=== PATIENT | male | born 1970 | race Caucasian/White ===

== ENCOUNTER 2017-10-10 08:02 | Emergency (ER) | payer MEDICAID ==
[~2017-10-10] VITALS: Wt 70.8 kg
[2017-10-10] MEDS ORDERED: CEPH-443 PO (08:24)
[2017-10-10] MEDS ORDERED: PRED20TA PO (08:24)
[2017-10-10] MEDS ORDERED: IBUP-1542 PO (08:24)
[2017-10-10] MEDS ORDERED: SULF1TAB31 PO (08:24)
--- NOTE | 2017-10-10 08:28 | ERD ---
ER Documentation Chief Complaint Chief Complaint l. arm bite/redness HPI 47-year-old male presents with a history of an insect bite or sting on the left arm and is now complaining of redness and swelling today. This occurred about 12 hours ago last night, and he states that it caused a little stinging bite sensation on his forearm and then he woke up today with redness, swelling with pain. He is denies trauma. He has not had any drainage. No history of shortness breath, chest pain, rashes. ROS All systems reviewed and are negative except as per history of present illness. Medications Home Meds Active Scripts Ibuprofen* (Motrin*) 600 Mg Tab, 600 MG PO Q6, #30 TAB Prov:JEFFERSON AVILA PA-C 10/10/17 Prednisone* (Prednisone*) 20 Mg Tab, 20 MG PO DAILY for 4 Days, TAB Prov:JEFFERSON AVILA PA-C 10/10/17 Sulfamethoxazole/Trimethoprim* (Bactrim Ds* Tablet) 1 Each Tablet, 1 TAB PO BID , #14 TAB Prov:JEFFERSON AVILA PA-C 10/10/17 Cephalexin* (Keflex*) 500 Mg Capsule, 500 MG PO QID for 7 Days, CAP Prov:JEFFERSON AVILA PA-C 10/10/17 Physical Exam Vitals Vital Signs Date Time Temp Pulse Resp B/P Pulse Ox O2 Delivery O2 Flow Rate FiO2 10/10/17 08:05 98.7 99 20 153/103 98 Physical Exam General: Well-developed, well-nourished. The patient appears in no acute distress. HEENT: Head is normocephalic, atraumatic. No scleral icterus. Neck: Supple. Nontender. Lungs: Clear to auscultation. Normal air movement. Heart: Regular rate and rhythm. S1 and S2 are normal. No murmurs, gallops, or rubs. Abdomen: Soft, nontender, nondistended. Bowel sounds are normoactive. Extremities: No clubbing or cyanosis. Normal pulses. Moving extremities x 4. No weakness. Neurologic: Alert and oriented 3. No focal deficits. Skin: There is an area of the sting bite on the volar aspect of the left forearm. There is swelling, erythema and warmth surrounding the area to the wrist, the patient's skin examination shows induration but no fluctuance. There is no evidence of vesicles. No lymphatic streaking Results 24 hrs Current Medications Medications (Trade) Dose Ordered Sig/Rudolph Route PRN Reason Start Time Stop Time Status Last Admin Dose Admin Cephalexin (Keflex) 500 mg ONCE ONCE PO 10/10/17 08:30 10/10/17 08:31 Trimethoprim/ Sulfamethoxazole (Bactrim (Ds)) 1 tab ONCE ONCE PO 10/10/17 08:30 10/10/17 08:31 Prednisone (Prednisone) 20 mg ONCE ONCE PO 10/10/17 08:30 10/10/17 08:31 Procedures/MDM 47-year-old male presents with a local reaction from insect bite sting, with local cellulitis. There is no abscess, there is no evidence of compartment syndrome, trauma, deep space infection, anaphylaxis. Given the swelling, patient will be placed on a low dose of prednisone, given Keflex and Bactrim as antimicrobial coverage and ibuprofen for pain and swelling. He has been asked to keep the area clean and dry and recheck in 2 days. No lymphatic streaking, the patient's examination shows no signs of a limb threatening process any stable for outpatient management. Departure Diagnosis: Primary Impression: Cellulitis of arm Condition: Good Patient Instructions: Cellulitis, Allergic Reaction, Insect (Local) Additional Instructions: WOUND CHECK:CONSULTE A RUMA MARROQUIN EN 2 garcía para trupti HENDRIX HERIDA. JEFFERSON AVILA PA-C Oct 10, 2017 08:28
[2017-10-10] MEDS ORDERED: TRIMETHOPRIM/SULFAMETHOX (DS) TAB PO ONE (08:30)
[2017-10-10] MEDS ORDERED: BACITRACIN 0.5%/ZINC 28.35 GM OINT TOP ONE (08:30)
[2017-10-10] MEDS ORDERED: predniSONE 20 MG TAB PO ONE (08:30)
[2017-10-10] MEDS ORDERED: CEPHALEXIN 500 MG CAP PO ONE (08:30)
== END 2017-10-10 08:56 | disposition home or self-care (01) ==
LOC: FTE 08:02
DX: L03.114 Cellulitis of left upper limb (principal)
CPT/HCPCS: J7512; Z7502; Z7610; 99284

== ENCOUNTER 2017-10-11 09:09 | Emergency (ER) | payer MEDICAID ==
[~2017-10-11] VITALS: Ht 170.2 cm; Wt 70.7 kg
[~2017-10-11 09:09] MED LIST: CEPH-443 PO; IBUP-1542 PO; PRED20TA PO; SULF1TAB31 PO
[2017-10-11 09:11] VITALS: Ht 170.2 cm; Wt 70.7 kg
--- NOTE | 2017-10-11 09:35 | ERD ---
ER Documentation Chief Complaint Chief Complaint redness/swelling to left arm is getting worse since yesterdays visit HPI 47-year-old male, previously healthy, returns to the emergency department as directed by his provider here in the ER for worsening of erythema , warmth and tenderness of left forearm. The patient started his antibiotics last night including cephalexin and Bactrim but this morning he noticed that the edema, erythema and pain had progressed. Denies fevers, chills, refers full range of motion of all fingers, no numbness or tingling. ROS All systems reviewed and are negative except as per history of present illness. Medications Home Meds Active Scripts Ibuprofen* (Motrin*) 600 Mg Tab, 600 MG PO Q6, #30 TAB Prov:JEFFERSON AVILA PA-C 10/10/17 Prednisone* (Prednisone*) 20 Mg Tab, 20 MG PO DAILY for 4 Days, TAB Prov:JEFFERSON AVILA PA-C 10/10/17 Sulfamethoxazole/Trimethoprim* (Bactrim Ds* Tablet) 1 Each Tablet, 1 TAB PO BID , #14 TAB Prov:JEFFERSON AVILA PA-C 10/10/17 Cephalexin* (Keflex*) 500 Mg Capsule, 500 MG PO QID for 7 Days, CAP Prov:JEFFERSON AVLIA PA-C 10/10/17 Allergies Allergies: Coded Allergies: No Known Allergy (Unverified , 10/11/17) PMhx/Soc Hx Alcohol Use: No Hx Substance Use: No Hx Tobacco Use: No Physical Exam Vitals Vital Signs Date Time Temp Pulse Resp B/P Pulse Ox O2 Delivery O2 Flow Rate FiO2 10/11/17 09:11 99.6 84 18 144/91 98 Physical Exam Patient is in no acute distress, vital signs stable. Alert and fully oriented. EYES: PERRLA, EOMI, Sclera and conjunctiva appear normal. EARS: Canals clear, tympanic membranes WNL THROAT: Normal oropharynx. NECK: Supple, No lymphadenopathy. Full ROM without pain or tenderness. HEART: RRR, no rubs, murmurs, clicks or gallops. LUNGS: Clear to auscultation. ABDOMEN: Soft, non-tender without masses or hepatosplenomegaly. EXTREMITIES: Left forearm: Erythema margins extending 10 cm over previous mindi done yesterday in the ER, with mild induration, warmth and tenderness. Neurovascular exam intact BACK: Full ROM, no deformity, normal back exam NEURO: Cranial nerves grossly intact, no motor or sensory deficit Results 24 hrs Current Medications Medications (Trade) Dose Ordered Sig/Rudolph Route PRN Reason Start Time Stop Time Status Last Admin Dose Admin Methylprednisolone Sodium Succinate (Solu-Medrol) 125 mg ONCE ONCE IM 10/11/17 10:00 10/11/17 10:01 DC 10/11/17 09:54 Ceftriaxone Sodium (Rocephin) 1 gm ONCE ONCE IM 10/11/17 10:00 10/11/17 10:01 DC 10/11/17 09:54 Lidocaine (Xylocaine 1% (Mdv) 20 ml) 1 ml ONCE ONCE SC 10/11/17 10:00 10/11/17 10:01 DC 10/11/17 09:54 Procedures/MDM 47y/o male patient previously, presents to the ED c/o worsening of cellulitis during the last 24 hours. Vital signs stable, Physical exam revealed erythema, induration and warmth extending 10 cm of her previous mindi done yesterday here in the ER. Differential diagnosis include but not limited to: Abscess formation , allergic reaction, dermatitis, phlebitis. Physical examination and clinical presentation consistent most likely with worsening of cellulitis without abscess.. During the ED course the patient received treatment with Rocephin and Solu- Medrol IM presenting overall improvement of the symptoms. Results and clinical impression discussed with patient who agrees with management. The patient is stable to be treated outpatient and will be discharged home with recommendations to continue the antibiotics prescribed yesterday. Side effects of prescribed medications (headache, rash, nausea, vomiting, diarrhea) were reviewed. The patient was instructed to follow up with the primary care provider in the next 48h. If symptoms persist, worsen or new symptoms develop, then patient should return to the ED immediately. Instructions explained and given to patient in Montenegrin with acknowledgment and demonstrated understanding. Disclaimer: Inadvertent spelling and grammatical errors are likely due to EHR/ dictation software use and do not reflect on the overall quality of patient care. Also, please note that the electronic time recorded on this note does not necessarily reflect the actual time of the patient encounter. Departure Diagnosis: Primary Impression: Cellulitis of left arm Condition: Stable Patient Instructions: Cellulitis Additional Instructions: Call your primary care doctor TOMORROW for an appointment during the next 1-2 days. See the doctor sooner or return here if your condition worsens before your appointment time. Thank you very much for allowing us to participate in your care. Your health and safety is our top priority at [facility]. Have prescriptions filled and follow precisely the directions on the label. Follow-up with primary care provider during the next 4 days and bring all the information and medications prescribed. If illness has not improved in 2 days, then make an appointment with primary care provider. If the provider is unavailable, return to the Emergency Department immediately. CHONG RICO MD Oct 11, 2017 09:35
[2017-10-11] MEDS ORDERED: LIDOCAINE 1% (MDV) 20 ML INJ SC ONE (10:00)
[2017-10-11] MEDS ORDERED: METHYLPREDNISOLONE 125 MG INJ IM ONE (10:00)
[2017-10-11] MEDS ORDERED: CEFTRIAXONE 1 GM INJ IM ONE (10:00)
== END 2017-10-11 10:50 | disposition home or self-care (01) ==
LOC: FTE 09:09
DX: L03.114 Cellulitis of left upper limb (principal)
CPT/HCPCS: 96372; J0696; J2930; Z7502; Z7610